=== PATIENT | female | born 1930 | race Caucasian/White ===

== ENCOUNTER 2019-08-03 09:44 | Emergency (ER) | payer MEDICARE, OTHER ==
[~2019-08-03] VITALS: Ht 170.2 cm; Wt 81.7 kg
[~2019-08-03 09:44] MED LIST: ASPIRIN EC81 MG PO; B COMPLEX # 11 EACH PO; CALAN SR120 MG PO; CITRATE OF MAG300 ML PO; COL-RITE100 MG PO; DAILY VITAMIN1 EAC2 PO; LEVOTHYROXINE25 MCG PO; MACROBID 100 M100 MG PO; PEPCID20 MG PO; VERAPAMIL HCL120 MG PO; VITAMIN B-12100 MCG PO; ZITHROMAX250 MG PO; ZOFRAN4 MG PO
--- OUTSIDE RECORDS SUMMARY | 2019-08-03 09:46 | XMS ---
PreMana Notification: DARYA CAMERON Security Data Sme Events No recent Security Events currently on file CRITERIA MET - [facility] PROVID[facility] Myesha Saucedo Consumer Experience Consultant/Supervisor Bonding 02/26/2019-Current PHONE: [phone] Myesha Saucedo Primary Care 02/26/2019-Current PHONE: [phone] Refugio Hackett MD PHONE: Unknown Theresa has no Care Guidelines for this patient. E.D. VISIT COUNT (12 MO.) 1 TIFFANY Chang TOTAL 1 NOTE: Visits indicate total known visits. ED/UCC VISIT TRACKING (12 MO.) 08/03/2019 09:44 TIFFANY Kumar OR TYPE: Emergency COMPLAINT: - FALL INPATIENT VISIT TRACKING (12 MO.) No inpatient visits to display in this time frame [id number]
[2019-08-03] MEDS ORDERED: LEVOTHYROXINE50 MCG PO (10:21)
[2019-08-03] MEDS ORDERED: BRIMONIDINE TART5 M1 OD (10:21)
[2019-08-03] MEDS ORDERED: LORAZEPAM0.5 MG PO (10:22)
[2019-08-03] MEDS ORDERED: FLUOXETINE HCL40 MG PO (10:22)
[2019-08-03] MEDS ORDERED: NAPROXEN SODIU220 MG PO (10:23)
[2019-08-03] MEDS ORDERED: KEFLEX500 MG PO (17:00)
== END 2019-08-03 11:30 | disposition home or self-care (01) ==
LOC: ED 09:44
DX: Z04.3 Encounter for examination and observation following other accident (principal); M25.562 Pain in left knee; G89.29 Other chronic pain; Z88.8 Allergy status to other drugs, medicaments and biological substances; Z88.2 Allergy status to sulfonamides; Z88.5 Allergy status to narcotic agent; Z88.1 Allergy status to other antibiotic agents; Z79.899 Other long term (current) drug therapy; Z79.82 Long term (current) use of aspirin
CPT/HCPCS: 73560; 99283-25

== ENCOUNTER 2019-08-03 16:02 | Emergency (ER) | payer MEDICARE, OTHER ==
[~2019-08-03] VITALS: Ht 170.2 cm; Wt 81.7 kg
[~2019-08-03 16:02] MED LIST changes: +BRIMONIDINE TART5 M1 OD; +FLUOXETINE HCL40 MG PO; +LEVOTHYROXINE50 MCG PO; +LORAZEPAM0.5 MG PO; +NAPROXEN SODIU220 MG PO
--- OUTSIDE RECORDS SUMMARY | 2019-08-03 16:04 | XMS ---
PreManage Notification: DARYA CAMERON Security Household Personal Assistant Events No recent Security Events currently on file CRITERIA MET - [facility] - 2 Visits in 30 Days CARE PROVIDERS Myesha Saucedo Machine Designer/Offset Plate Maker 02/26/2019-Current PHONE: [phone] Myesha Saucedo Primary Care 02/26/2019-Current PHONE: [phone] Refugio Hackett MD PHONE: Unknown Theersa has no Care Guidelines for this patient. E.D. VISIT COUNT (12 MO.) 2 TIFFANY Chang TOTAL 2 NOTE: Visits indicate total known visits. ED/UCC VISIT TRACKING (12 MO.) 08/03/2019 16:02 TIFFANY Kumar OR TYPE: Emergency COMPLAINT: - PAIN 08/03/2019 09:44 TIFFANY Kumar OR TYPE: Emergency COMPLAINT: - FALL INPATIENT VISIT TRACKING (12 MO.) No inpatient visits to display in this time frame [email or web address]
[2019-08-03] MEDS ORDERED: KEFLEX500 MG PO (17:00)
== END 2019-08-03 18:05 | disposition home or self-care (01) ==
LOC: ED 16:02
DX: N39.0 Urinary tract infection, site not specified (principal); Z88.8 Allergy status to other drugs, medicaments and biological substances; Z88.2 Allergy status to sulfonamides; Z88.5 Allergy status to narcotic agent; Z88.1 Allergy status to other antibiotic agents; Z79.899 Other long term (current) drug therapy; Z79.82 Long term (current) use of aspirin
CPT/HCPCS: 51701; 80053; 81001; 85025; 87077; 87088; 87186; 99285-25; J0696

== ENCOUNTER 2019-08-20 11:14 | Emergency (ER) | payer MEDICARE, OTHER ==
[~2019-08-20] VITALS: Ht 170.2 cm; Wt 81.7 kg
[~2019-08-20 11:14] MED LIST changes: +KEFLEX500 MG PO
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
[2019-08-20] MEDS ORDERED: CEFDINIR250 MG/5 M PO (14:21)
== END 2019-08-20 15:00 | disposition home or self-care (01) ==
LOC: ED 11:14
DX: N39.0 Urinary tract infection, site not specified (principal); E03.9 Hypothyroidism, unspecified; I10 Essential (primary) hypertension; E78.5 Hyperlipidemia, unspecified; F03.90 Unspecified dementia, unspecified severity, without behavioral disturbance, psychotic disturbance, mood disturbance, and anxiety; Z88.8 Allergy status to other drugs, medicaments and biological substances; Z88.2 Allergy status to sulfonamides; Z88.5 Allergy status to narcotic agent; Z88.1 Allergy status to other antibiotic agents; Z79.899 Other long term (current) drug therapy; Z79.82 Long term (current) use of aspirin
CPT/HCPCS: 51701; 80053; 81001; 84484; 85025; 99285-25; J0696; J7040

== ENCOUNTER 2019-09-18 13:08 | Emergency (ER) | payer MEDICARE, OTHER ==
[~2019-09-18] VITALS: Ht 170.2 cm; Wt 81.7 kg
[~2019-09-18 13:08] MED LIST changes: +CEFDINIR250 MG/5 M PO
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
== END 2019-09-18 15:36 | disposition home or self-care (01) ==
LOC: ED 13:08
DX: S00.83XA Contusion of other part of head, initial encounter (principal); E03.9 Hypothyroidism, unspecified; I10 Essential (primary) hypertension; E78.5 Hyperlipidemia, unspecified; Z88.5 Allergy status to narcotic agent; Z88.2 Allergy status to sulfonamides; Z79.899 Other long term (current) drug therapy; X58.XXXA Exposure to other specified factors, initial encounter
CPT/HCPCS: 70450; 99284-25